=== PATIENT | male | born 1955 | race Caucasian/White ===

== ENCOUNTER 2017-12-14 15:03 | Day surgery (SDC) | payer MEDICARE, OTHER ==
[~2017-12-14] VITALS: Ht 180.3 cm; Wt 114.6 kg
[~2017-12-14 15:03] MED LIST: ALBU90OI61 INH; Amitriptyline100 MG; B Complete1 EACH PO; BENZ100A PO; BUTASPCAF; BUTASPCAF PO; CEPH500 PO; CITA20 PO; CODBUTASA; ESOM20; ESOM20 PO; Esgic Tablet1 EACH PO; Exforge 10-3201 EACH PO; FIORICET 50-301 EACH PO; FISH1000 PO; FLUSAL1005 INH; HYDACE5 PO; IPRAIS NEB; ISODICACE; PROC10 PO; VICODIN 5-3001 EACH PO
[2017-12-14] MEDS ORDERED: KAPSPARGO SPRI100 MG PO (15:46)
[2017-12-14] MEDS ORDERED: ASPI81CH PO (15:47)
[2017-12-14] MEDS ORDERED: GRALISE1 EACH PO (15:47)
== END 2017-12-14 17:16 | disposition home or self-care (01) ==
LOC: ORSCSDS 15:03
PROVIDERS: Orthopaedic Surgery
PROC: 01N54ZZ Release Median Nerve, Percutaneous Endoscopic Approach (ICD-10-PCS; principal; 2017-12-14 16:20)
DX: G56.02 Carpal tunnel syndrome, left upper limb (principal); G47.33 Obstructive sleep apnea (adult) (pediatric); I10 Essential (primary) hypertension; K21.9 Gastro-esophageal reflux disease without esophagitis; J45.909 Unspecified asthma, uncomplicated; F17.210 Nicotine dependence, cigarettes, uncomplicated; E66.9 Obesity, unspecified; Z68.35 Body mass index [BMI] 35.0-35.9, adult; Z79.82 Long term (current) use of aspirin; Z79.899 Other long term (current) drug therapy
CPT/HCPCS: J0690; J2250; J7120

== ENCOUNTER → 2019-10-09 | Outpatient (CLI) | payer MEDICARE, OTHER ==
[~2019-10-09] MED LIST changes: +ASPI325 PO; +ASPI81CH PO; +B Complex #11 EACH PO; +FISH OIL 1,0001 EAC1 PO; +GRALISE1 EACH PO; +HYDR1TAB94 PO; +Imitrex100 MG PO; +KAPSPARGO SPRI100 MG PO; +Nexium40 MG PO; +TOPI50 PO; +TRAZ100 PO
== END | disposition home or self-care (01) ==
LOC: LAB EV 11:12 → LAB SHORT 11:12
DX: G89.4 Chronic pain syndrome (principal); Z79.899 Other long term (current) drug therapy
CPT/HCPCS: G0480

== ENCOUNTER → 2023-05-02 | Outpatient (CLI) | payer MEDICARE, OTHER | LOC: LAB SHORT 13:47 → LAB 13:47 | DX: L08.9 Local infection of the skin and subcutaneous tissue, unspecified (principal) | CPT/HCPCS: 87070; 87205 ==